=== PATIENT | female | born 1980 | race Hispanic/Latino ===

== ENCOUNTER → 2019-07-28 | Outpatient (CLI) | payer OTHER | END | disposition home or self-care (01) | LOC: RAH 13:33 | PROVIDERS: ATTEND Internal Medicine Cardiovascular Disease | DX: Z13.6 Encounter for screening for cardiovascular disorders (principal) | CPT/HCPCS: 75571 ==

== ENCOUNTER 2022-07-08 06:50 | Day surgery (SDC) | payer OTHER ==
[2022-07-06 12:56] LABS: BASOPHILS % (AUTO) 0.3 % (0.0-5.0); EOSINOPHILS % (AUTO) 0.7 % (0.0-8.0); HEMATOCRIT 40.6 % (36-48); LYMPHOCYTES % (AUTO) 45.2 % (21.0-51.0); MEAN CORPUSCULAR HGB CONC 32.5 g/dL (32.0-36.0); MEAN CORPUSCULAR VOLUME 98.3 fL (79-99); MONOCYTES % (AUTO) 6.3 % (3.0-13.0); NEUTROPHILS % (AUTO) 47.3 % (40.0-77.0); PLATELET COUNT (AUTO) 259 K/uL (130-400); RED BLOOD CELL COUNT(AUTO) 4.13 MIL/uL (4.00-5.50)
[2022-07-06 13:21] LABS: ALBUMIN 3.6 g/dL (3.5-5.0); BILIRUBIN,DIRECT 0.2 mg/dL (0.0-0.3); CREATININE 0.6 mg/dL (0.5-1.5); POTASSIUM 4.1 mmol/L (3.5-5.1); TOTAL PROTEIN, SERUM 7.3 g/dL (6.0-8.3)
[2022-07-06 13:47] VITALS: BP 138/71
[~2022-07-08] VITALS: Ht 157.5 cm; Wt 109.4 kg
[2022-07-08] VITALS (16 sets, daily range): BP systolic 95–123; BP diastolic 48–66
[~2022-07-08 06:50] MED LIST: ASPI-1005 PO; DULO20CA18 PO; LEVO5TAB13 PO; MEGE40TA5 PO; METO25TA6 PO; MONT-39 PO; MVIT PO; OMEP20CA12 PO; POTA-79 PO; VITA1CAP85 PO; [UNRECOGNIZED DRUG - OTHER] PO; ashwagandha PO; vitamin d PO
[2022-07-08] MEDS ORDERED: LACTATED RINGERS 1000ML 1,000 ML IV ONE (07:06)
[2022-07-08] MEDS ORDERED: MIDAZOLAM HCL 1 MG/ML 2ML VIAL ONE (07:30)
[2022-07-08] MEDS ORDERED: LIDOCAINE PF 100MG/5ML (2%) SYRINGE 5ML ONE (07:30)
[2022-07-08] MEDS ORDERED: DEXAMETHASONE SOD PHOSPHATE 10MG/ML 1ML VIAL ONE (07:30)
[2022-07-08] MEDS ORDERED: FENTANYL CITRATE PF 50 MCG/1 ML 5ML AMP IV ONE (07:31)
[2022-07-08] MEDS ORDERED: PROPOFOL 10 MG/ML 20ML VIAL IV ONE (07:31)
[2022-07-08] MEDS ORDERED: ONDANSETRON 4MG INJ ONE (07:31)
[2022-07-08] MEDS ORDERED: ROCURONIUM 10MG/1ML SYR 10 MG/ML ML ONE (07:31)
[2022-07-08] MEDS ORDERED: GLYCOPYRROLATE 1 MG/5 ML SYRINGE ONE (08:12)
[2022-07-08] MEDS ORDERED: NEOSTIGMINE 5MG/5ML SYR IV ONE (08:12)
[2022-07-08] MEDS ORDERED: ALBUTEROL 0.042% 1.25MG/3ML IH ONE (08:38)
[2022-07-08] MEDS ORDERED: IPRATROPIUM 0.5 MG/2.5 ML INH IH ONE (08:38)
== END 2022-07-08 10:00 | disposition home or self-care (01) ==
LOC: DAH 06:50
PROVIDERS: ATTEND Obstetrics & Gynecology
DX: N93.9 Abnormal uterine and vaginal bleeding, unspecified (principal); Z20.822 Contact with and (suspected) exposure to COVID-19; K21.9 Gastro-esophageal reflux disease without esophagitis; E66.01 Morbid (severe) obesity due to excess calories; M79.7 Fibromyalgia; F32.A Depression, unspecified; I45.9 Conduction disorder, unspecified; Z82.49 Family history of ischemic heart disease and other diseases of the circulatory system; Z83.3 Family history of diabetes mellitus; Z83.42 Family history of familial hypercholesterolemia; Z98.890 Other specified postprocedural states; Z90.49 Acquired absence of other specified parts of digestive tract; Z98.891 History of uterine scar from previous surgery; Z68.42 Body mass index [BMI] 45.0-49.9, adult
CPT/HCPCS: 80076; 80048; 84703; 85025; 87426; 36415; 93005; 58563; 94640; 58300; A6260; A4663; A4606; J7120; J3010; J3490; J1100; J2710; J2001; J2250; J2704; J2405; A4351; A4215; A4223; A4222; A4221